=== PATIENT | female | born 1995 | race Caucasian/White ===

== ENCOUNTER 2019-08-19 00:43 | Emergency (ER) | payer BC ==
[2019-08-19 00:50] VITALS: RESP 18; TEMP 98.5
[2019-08-19 02:13] LABS: Basophils % (A) 0 %; Eosinophils # (A) 0.1 k/uL (0-0.7); Eosinophils % (A) 1 %; HCT 35.8 % (34.0-46.0); Lymphocytes # (A) 2.6 k/uL (1.0-4.8); Lymphocytes % (A) 22 %; MCH 30.9 pg (25.0-35.0); MCHC 33.6 g/dL (31.0-37.0); MCV 92.1 fL (80.0-100.0); Mean Platelet Volume 6.8; Monocytes # (A) 0.5 k/uL (0-1.0); Monocytes % (A) 5 %; Neutrophils # (A) 8.6 k/uL (1.3-7.7); Neutrophils % (A) 72 %; Platelet Count 224 k/uL (150-450); RBC 3.89 m/uL (3.80-5.40); RDW 12.4 % (11.5-15.5)
--- NOTE | 2019-08-19 02:18 | US ---
EXAMINATION TYPE: Transabdominal DATE OF EXAM: 08/19/2019 1:43 AM COMPARISON: NONE CLINICAL HISTORY: vag bleeding . Vaginal bleeding x 1.5 hours. Hx . . EXAM PERFORMED: Transabdominal (TA) EXAM MEASUREMENTS: GESTATIONAL AGE / DATING Physician Established: (13 weeks/6 days) EDC: 02/18/2020 Dates by LMP: Unknown Dates by First Scan: This is first scan Dates by Current Scan for: (13 weeks/4 days) EDC: 02/20/2020 MATERNAL ANATOMY Uterus: 11.2 x 9.4 x 10.1 cm. Right Ovary: 3.1 x 2.0 x 1.4 cm. Left Ovary: Not visualized. Post CDS / Adnexa: Appear wnl Presence of free fluid: None seen. Presence of corpus luteal cyst: Area of mixed echogenicity and peripheral vascularity seen within rig ht ovary: 1.2 x 1.4 x 1.1 cm. Presence of subchorionic bleed: Possible. Slightly hypoechoic indistinct area seen uterus left adjace nt to the GS toward the fundus: 3.2 x 2.2 x 2.2 cm. GESTATION / SURVEY CRL: 7.52 cm. (13 weeks/4 days) Yolk Sac (normal less than 6mm): not seen Heart Rate: 167 bpm Rhythm: Normal IUP: Viable IUP Nuchal Translucency 10-14wks (normal less than 3mm): not well seen Date of LMP: unknown Beta HcG (if available): not available IMPRESSION: The ultrasound gestational age is 13 weeks and 4 days. Possible 3.2 x 2.2 cm area of subchorionic hem orrhage near the uterine fundus.
[2019-08-19 02:22] LABS: ALT 11 U/L (4-34); AST 18 U/L (14-36); African American GFR (CKD) >90 (>60 ml/min/1.73 sqM); Albumin 3.7 g/dL (3.5-5.0); Alkaline Phosphatase 59 U/L (38-126); Anion Gap 7 mmol/L; Blood Urea Nitrogen 10 mg/dL (7-17); Calcium 9.5 mg/dL (8.4-10.2); Carbon Dioxide 21 mmol/L (22-30); Chloride 105 mmol/L (98-107); Glucose 95 mg/dL (74-99); Non-African American GFR(CKD) >90 (>60 ml/min/1.73 sqM); Potassium 4.2 mmol/L (3.5-5.1); Sodium 133 mmol/L (137-145); Total Bilirubin 0.2 mg/dL (0.2-1.3); Total Protein 6.4 g/dL (6.3-8.2)
[2019-08-19 03:00] LABS: Appearance,Urine Clear (Clear); Bilirubin,Urine Negative (Negative); Blood,Urine Negative (Negative); Color,Urine Yellow; Glucose,Urine (UA) Negative (Negative); Ketones,Urine Negative (Negative); Leukocyte Esterase,Urine Negative (Negative); Nitrite,Urine Negative (Negative); PH, Urine 5.5 (5.0-8.0); Protein,Urine Negative (Negative); Specific Gravity,Urine 1.024 (1.001-1.035); Urobilinogen,Urine <2.0 mg/dL (<2.0)
[2019-08-19 03:04] LABS: HCG,Quantitative Serum 16061.3 mIU/mL
--- NOTE | 2019-08-19 03:09 | ED ---
General Adult HPI - General Chief complaint: Vaginal Bleeding Stated complaint: 13 wks preg, vaginal bleeding Time Seen by Provider: 08/19/19 00:55 Source: patient, RN notes reviewed, old records reviewed Mode of arrival: ambulatory Limitations: no limitations - History of Present Illness Initial comments: 24-year-old female patient who is 13 weeks gestation parents ED for evaluation of vaginal spotting. For she's had some. Mild cramping last 2 days. Patient reports that she follows up with Dr. Marie and she is taking her vitamins. Denies any other complaints. Systemic: Pt denies fatigue, fever/chills, rash. Pt denies weakness, night sweats, weight loss. Neuro: Pt denies headache, visual disturbances, syncope or pre-syncope. HEENT: Pt denies ocular discharge or irritation, otalgia, rhinorrhea, pharyngitis or notable lymphadenopathy. Cardiopulmonary: Pt denies chest pain, SOB, heart palpitations, dyspnea on exertion. Abdominal/GI: Pt denies n/v/d. : Pt denies dysuria, burning w/ urination, frequency/urgency. Denies new onset urinary or bowel incontinence. MSK: Pt denies myalgia, loss of strength or function in extremities. Neuro: Pt denies new onset weakness, paresthesias. - Related Data Allergies Allergy/AdvReac Type Severity Reaction Status Date / Time naproxen AdvReac Unknown Verified 08/19/19 00:51 Review of Systems ROS Statement: Those systems with pertinent positive or pertinent negative responses have been documented in the HPI. ROS Other: All systems not noted in ROS Statement are negative. Past Medical History Additional Past Medical History / Comment(s): Herpes strand 1. History of Any Multi-Drug Resistant Organisms: None Reported Past Surgical History: Section, Orthopedic Surgery Additional Past Surgical History / Comment(s): L wrist. Past Psychological History: Anxiety Smoking Status: Never smoker Past Alcohol Use History: None Reported Past Drug Use History: None Reported General Exam - General Exam Comments Initial Comments: Constitutional: NAD, AOX3, Pt has pleasant affect. HEENT: NC/AT, trachea midline, neck supple, no lymphadenopathy. External ears appear normal, without discharge. Mucous membranes moist. Eyes PERRLA, EOM intact. There is no scleral icterus. No pallor noted. Cardiopulmonary: RRR, no murmurs, rubs or gallops, no JVD noted. Lungs CTAB in anterior and posterior garcia. No peripheral edema. Abdominal exam: Abdomen soft and non-distended. Abdomen non-tender to palpation in all 4 quadrants. Bowel sounds active in LLQ. No hepatosplenomegaly. No ecchymosis Neuro: CN II-XII grossly intact. No nuchal rigidity. No raccon eyes, no harris sign. MSK: Full active ROM in upper and lower extremities, 5/5 stregnth. Limitations: no limitations Course Vital Signs 08/19/19 00:46 Temperature 98.5 F Pulse Rate 107 H Respiratory 18 Rate Blood Pressure 142/88 O2 Sat by Pulse 99 Oximetry Medical Decision Making - Medical Decision Making 24 old female patient presented to ED for evaluation of some mild vaginal spotting which started earlier today. Patient vital signs are stable, afebrile. Physical exam did not display acute pathology. Abdomen soft and nontender. Laboratory investigations are non-impressive. Blood type is A+. Ultrasound display gestational age 13 weeks and 4 days. Possible 3 x 2 cm area of subchorionic hemorrhage. No other ectopic getting processes are noted. Patient was discharged to follow up with primary care provider will return to ER if condition worsens. Case discussed with Dr. Hobson. - Lab Data Result diagrams: 08/19/19 02:01 08/19/19 02:01 Lab Results 08/19/19 08/19/19 08/19/19 Range/Units 02:01 02:01 02:01 WBC 12.0 H (3.8-10.6) k/uL RBC 3.89 (3.80-5.40) m/uL Hgb 12.0 (11.4-16.0) gm/dL Hct 35.8 (34.0-46.0) % MCV 92.1 (80.0-100.0) fL MCH 30.9 (25.0-35.0) pg MCHC 33.6 (31.0-37.0) g/dL RDW 12.4 (11.5-15.5) % Plt Count 224 (150-450) k/uL Neutrophils % 72 % Lymphocytes % 22 % Monocytes % 5 % Eosinophils % 1 % Basophils % 0 % Neutrophils # 8.6 H (1.3-7.7) k/uL Lymphocytes # 2.6 (1.0-4.8) k/uL Monocytes # 0.5 (0-1.0) k/uL Eosinophils # 0.1 (0-0.7) k/uL Basophils # 0.0 (0-0.2) k/uL Sodium 133 L (137-145) mmol/L Potassium 4.2 (3.5-5.1) mmol/L Chloride 105 (98-107) mmol/L Carbon Dioxide 21 L (22-30) mmol/L Anion Gap 7 mmol/L BUN 10 (7-17) mg/dL Creatinine 0.52 (0.52-1.04) mg/dL Est GFR (CKD-EPI)AfAm >90 (>60 ml/min/1.73 sqM) Est GFR (CKD-EPI)NonAf >90 (>60 ml/min/1.73 sqM) Glucose 95 (74-99) mg/dL Calcium 9.5 (8.4-10.2) mg/dL Total Bilirubin 0.2 (0.2-1.3) mg/dL AST 18 (14-36) U/L ALT 11 (4-34) U/L Alkaline Phosphatase 59 (38-126) U/L Total Protein 6.4 (6.3-8.2) g/dL Albumin 3.7 (3.5-5.0) g/dL HCG, Quant 76426.3 mIU/mL Urine Color Urine Appearance (Clear) Urine pH (5.0-8.0) Ur Specific Aurora (1.001-1.035) Urine Protein (Negative) Urine Glucose (UA) (Negative) Urine Ketones (Negative) Urine Blood (Negative) Urine Nitrite (Negative) Urine Bilirubin (Negative) Urine Urobilinogen (<2.0) mg/dL Ur Leukocyte Esterase (Negative) Blood Type A Positive Blood Type Recheck No Previous Record Bld Type Recheck Status [facility] ONLY 08/19/19 Range/Units 02:40 WBC (3.8-10.6) k/uL RBC (3.80-5.40) m/uL Hgb (11.4-16.0) gm/dL Hct (34.0-46.0) % MCV (80.0-100.0) fL MCH (25.0-35.0) pg MCHC (31.0-37.0) g/dL RDW (11.5-15.5) % Plt Count (150-450) k/uL Neutrophils % % Lymphocytes % % Monocytes % % Eosinophils % % Basophils % % Neutrophils # (1.3-7.7) k/uL Lymphocytes # (1.0-4.8) k/uL Monocytes # (0-1.0) k/uL Eosinophils # (0-0.7) k/uL Basophils # (0-0.2) k/uL Sodium (137-145) mmol/L Potassium (3.5-5.1) mmol/L Chloride (98-107) mmol/L Carbon Dioxide (22-30) mmol/L Anion Gap mmol/L BUN (7-17) mg/dL Creatinine (0.52-1.04) mg/dL Est GFR (CKD-EPI)AfAm (>60 ml/min/1.73 sqM) Est GFR (CKD-EPI)NonAf (>60 ml/min/1.73 sqM) Glucose (74-99) mg/dL Calcium (8.4-10.2) mg/dL Total Bilirubin (0.2-1.3) mg/dL AST (14-36) U/L ALT (4-34) U/L Alkaline Phosphatase (38-126) U/L Total Protein (6.3-8.2) g/dL Albumin (3.5-5.0) g/dL HCG, Quant mIU/mL Urine Color Yellow Urine Appearance Clear (Clear) Urine pH 5.5 (5.0-8.0) Ur Specific Aurora 1.024 (1.001-1.035) Urine Protein Negative (Negative) Urine Glucose (UA) Negative (Negative) Urine Ketones Negative (Negative) Urine Blood Negative (Negative) Urine Nitrite Negative (Negative) Urine Bilirubin Negative (Negative) Urine Urobilinogen <2.0 (<2.0) mg/dL Ur Leukocyte Esterase Negative (Negative) Blood Type Blood Type Recheck Bld Type Recheck Status Disposition Clinical Impression: Vaginal bleeding during Disposition: HOME SELF-CARE Condition: Stable Instructions (If sedation given, give patient instructions): Non-Threatening First Trimester Vaginal Bleed (ED) Additional Instructions: Follow-up with primary care provider and FACILITIES SUPERVISOR tomorrow. Return to ER if condition worsens in any way. Is patient prescribed a controlled substance at d/c from ED?: No Referrals: Luisa Olmstead MD [Primary Care Provider] - 1-2 days
[2019-08-19 03:24] VITALS: BP 124/71; PULSE 90
== END 2019-08-19 03:25 | disposition home or self-care (01) ==
LOC: EC 00:43
DX: O46.91 Antepartum hemorrhage, unspecified, first trimester (principal); Z88.6 Allergy status to analgesic agent; Z3A.13 13 weeks gestation of pregnancy
CPT/HCPCS: 36415; 76801; 80053; 81003; 84702; 85025; 86900; 86901; 99284

== ENCOUNTER 2020-02-06 22:40 | Outpatient (CLI) | payer BC ==
[2020-02-07 00:10] LABS: Basophils % (A) 0 %; Eosinophils # (A) 0.1 k/uL (0-0.7); Eosinophils % (A) 1 %; HCT 36.6 % (34.0-46.0); HGB 12.2 gm/dL (11.4-16.0); Lymphocytes # (A) 2.1 k/uL (1.0-4.8); Lymphocytes % (A) 16 %; MCHC 33.3 g/dL (31.0-37.0); MCV 89.9 fL (80.0-100.0); Mean Platelet Volume 7.1; Monocytes # (A) 0.6 k/uL (0-1.0); Monocytes % (A) 5 %; Neutrophils # (A) 9.8 k/uL (1.3-7.7); Neutrophils % (A) 76 %; Platelet Count 295 k/uL (150-450); RBC 4.07 m/uL (3.80-5.40); RDW 14.5 % (11.5-15.5); WBC 12.9 k/uL (3.8-10.6)
[2020-02-07 00:26] LABS: Uric Acid 4.4 mg/dL (3.7-7.4)
[2020-02-07 00:47] VITALS: BP 154/86; PULSE 106; RESP 18; TEMP 98.4
--- NOTE | 2020-03-18 08:04 | P.MSEPDOC ---
Presenting Problems - Arrival Data Date of Arrival on Unit: 02/06/20 Time of Arrival on Unit: 22:40 Mode of Transport: Ambulatory - Complaint OB-Reason for Admission/Chief Complaint: Possible Onset of Labor Comment: pt. present to triage due to contractions starting around 6:00pm around every 30min per patient. Medical History - Information : 2 Para: 1 Term: 1 : 0 Abortions: Spontaneous or Elective: 0 Number of Living Children: 1 - Gestational Age Gestational Age by ABHAY (wks/days): 38 Weeks and 3 Days - History Complications: Prior Review of Systems - Review of Systems Constitutional: No problems Breast: No problems ENT: No problems Cardiovascular: No problems Respiratory: No problems Gastrointestinal: No problems Genitourinary: No problems Musculoskeletal: No problems Neurological: No problems Skin: No problems Vital Signs - Temperature Temperature: 98.4 F Temperature Source: Oral - Pulse Pulse Oximetery Pulse Rate: 106 Pulse Assessment Method: Pulse Oximetry - Respirations Respiratory Rate: 18 Oxygen Delivery Method: Room Air O2 Sat by Pulse Oximetry: 98 - Blood Pressure Right Arm Blood Pressure: 154/86 Blood Pressure Mean: 108 Blood Pressure Source: Automatic Cuff Medical Screen Scoring (Pre) - Cervical Exam Dilation: 0 cm = 0 Membranes: Intact - Uterine Contractions Frequency: > 5 minutes apart = 1 Duration: N/A Intensity: N/A - Maternal Vital Signs Maternal Temperature: N/A Maternal Blood Pressure: Systolic >139 = 2 Signs of Preeclampsia: N/A Maternal Respirations: N/A - Maternal Trauma Maternal Trauma: N/A - Assessment - Baby A Baseline FHR: 135 Heart Rate - NICHD Category: Category I (Normal) = 0 NST: Reactive Position: N/A Station: N/A - Total Score - Baby A Total Score - Baby A: 3 - Total Score - Baby B Total Score - Baby B: 3 - Total Score - Baby C Total Score - Baby C: 3 - Level of Risk - Baby A Level of Risk - Baby A: Low (0-5) - Level of Risk - Baby B Level of Risk - Baby B: Low (0-5) - Level of Risk - Baby C Level of Risk - Baby C: Low (0-5) Physician Notification (Pre) - Physician Notified Physician Notified Date: 02/07/20 Physician Notified Time: 23:29 New Order Received: Yes - Notification Comment Comment: orders for AST, ALT, CBC and uric acid, and to continue monitoring vitals, Labs reviewed with Dr. Denis, BP trending down last set of BP 134/76. Orders to discharge patient home with pelvic rest, and to follow up with Dr. Lambert, pt. samir for 02/11/20 Disposition - Disposition OB Disposition: Physician follow up in office, Discharge to home Discharge Date: 02/07/20 Discharge Time: 00:35 I agree with the RN Medical Screening Exam: Yes Case reviewed; plan agreed upon as documented in EMR&OBIX.: Yes Comments: Patient was neither seen nor examined by me. Diagnosis: FALSE LABOR AT OR AFTER 37 COMPLETED WEEKS OF GESTATION
== END 2020-02-07 00:35 | disposition home or self-care (01) ==
LOC: FBPOP 22:40
PROVIDERS: ATTEND Obstetrics & Gynecology
DX: O47.1 False labor at or after 37 completed weeks of gestation (principal); Z3A.38 38 weeks gestation of pregnancy
CPT/HCPCS: 59025; 84450; 84460; 84550; 85025; 99213

== ENCOUNTER 2020-02-11 06:00 | Inpatient (IN) | payer BC ==
[2020-02-10 14:42] VITALS: BMI 40.1
[2020-02-11] MEDS ORDERED: ceFAZolin 3 GM in SODIUM CHLORIDE 0.9% 100 ML IVPB ONE (10:37)
[2020-02-11] MEDS ORDERED: CITRIC ACID-SODIUM CITRATE 15 ML CUP PO ONE (10:37)
[2020-02-11] MEDS: LACTATED RINGERS 1,000 ML IV ONE ×2 (10:52→11:59)
[2020-02-11 11:00] LABS: Basophils % (A) 0 %; Eosinophils # (A) 0.2 k/uL (0-0.7); Eosinophils % (A) 2 %; HCT 39.6 % (34.0-46.0); HGB 12.7 gm/dL (11.4-16.0); Lymphocytes # (A) 2.1 k/uL (1.0-4.8); Lymphocytes % (A) 16 %; MCH 28.7 pg (25.0-35.0); MCHC 32.1 g/dL (31.0-37.0); MCV 89.5 fL (80.0-100.0); Monocytes # (A) 0.5 k/uL (0-1.0); Monocytes % (A) 4 %; Neutrophils # (A) 9.7 k/uL (1.3-7.7); Neutrophils % (A) 77 %; Platelet Count 320 k/uL (150-450); RBC 4.43 m/uL (3.80-5.40); RDW 14.9 % (11.5-15.5); WBC 12.6 k/uL (3.8-10.6)
--- NOTE | 2020-02-11 12:00 | P.HPOB ---
History of Present Illness H&P Date: 02/11/20 Chief Complaint: P at 39 and 0, history of 1 desires repeat This is a 24-year-old 001 at 39-2/7 weeks an estimated due date of 02/17. Patient has been receiving routine care with myself. Patient is a history of a primary secondary to arrest of descent and dilation. Patient states she was induced for multiple days eventually necessitating C- section for delivery. This morning patient notes good movement she denies contractions vaginal bleeding or loss of fluid. On bloodwork this patient has a blood type of A+, rubella status immune, hepatitis B surface antigen negative, HIV negative, RPR nonreactive, group beta strep is negative. Review of Systems Constitutional: Denies chills, Denies fatigue, Denies fever Ears, nose, mouth and throat: Denies headache Cardiovascular: Reports leg edema Respiratory: Denies dyspnea Gastrointestinal: Denies constipation, Denies diarrhea, Denies nausea, Denies vomiting Genitourinary: Reports Past Medical History Past Medical History: GERD/Reflux Additional Past Medical History / Comment(s): Herpes strand 1. , hx migraines, "ventricular double beat"-pulse is always high, acid reflux as child, anemia History of Any Multi-Drug Resistant Organisms: None Reported Past Surgical History: Section, Orthopedic Surgery Additional Past Surgical History / Comment(s): left wrist surgery x 3(plate/later removed), Past Anesthesia/Blood Transfusion Reactions: No Reported Reaction Past Psychological History: Anxiety Smoking Status: Never smoker Past Alcohol Use History: None Reported Past Drug Use History: None Reported - Past Family History Mother Family Medical History: Hypertension Medications and Allergies Home Medications Medication Instructions Recorded Confirmed Type Pnv,Calcium 72/Iron/Folic Acid 1 tab PO DAILY 12/10/19 02/11/20 History [ Plus Tablet] valACYclovir [Valtrex] 1 gm PO DAILY 02/06/20 02/11/20 History Allergies Allergy/AdvReac Type Severity Reaction Status Date / Time naproxen AdvReac blood Verified 02/11/20 10:35 pressure dropped Exam Osteopathic Statement: *. No significant issues noted on an osteopathic structural exam other than those noted in the History and Physical/Consult. Vital Signs Temp Pulse Resp BP Pulse Ox 02/11/20 10:42 96.7 F L 104 H 18 136/84 98 Intake and Output 02/10/20 02/11/20 02/11/20 22:59 06:59 14:59 Other: Weight 127.006 kg Targeted physical exam is performed on this date and warehouse receiving clerk a well-nourished well-developed female in no acute distress, breathing is noted to be nonlabored, heart has regular rate and rhythm, abdomen is gravid and appropriate for gestational age, trace lower cavity edema is noted. heart tones returned be category 1 and she is not otoniel. Cervical exam is deferred. Results Result Diagrams: 02/11/20 10:45 Abnormal Lab Results - Last 24 Hours (Table) 02/11/20 Range/Units 10:45 WBC 12.6 H (3.8-10.6) k/uL Neutrophils # 9.7 H (1.3-7.7) k/uL Assessment and Plan (1) Term Current Visit: Yes Status: Acute Code(s): Z34.90 - ENCNTR FOR SUPRVSN OF NORMAL , UNSP, UNSP TRIMESTER SNOMED Code(s): 62962020 (2) H/O section Current Visit: Yes Status: Acute Code(s): Z98.891 - HISTORY OF UTERINE SCAR FROM PREVIOUS SURGERY SNOMED Code(s): 510332450 Plan: This 24-year-old 2 para 1001 at 39-0/7 weeks is admitted to labor and delivery for scheduled repeat section. Surgery is reviewed and all questions are answered. Anesthesia and to see patient, will proceed with repeat section.
[2020-02-11] MEDS ORDERED: PHENYLEPHRINE 10 MG/ML VIAL ONE (12:07)
[2020-02-11] MEDS ORDERED: ONDANSETRON 4 MG/2 ML VIAL ONE (12:07)
[2020-02-11] MEDS ORDERED: MORPHINE SULFATE (PF) 0.3 MG/0.3 ML SYR ONE (12:07)
[2020-02-11] MEDS ORDERED: OXYTOCIN 10 UNIT/ML 1 ML VIAL ONE (12:07)
[2020-02-11] MEDS ORDERED: NALOXONE 0.4 MG/ML 1 ML VIAL IV PRN (13:00)
[2020-02-11] MEDS ORDERED: ACETAMINOPHEN IV (For NPO) 1,000 MG in EMPTY BAG 1 BAG IVPB ONE (13:00)
[2020-02-11] MEDS ORDERED: diphenhydrAMINE 25 MG CAP PO PRN (13:00)
[2020-02-11] MEDS ORDERED: diphenhydrAMINE 50 MG CAP PO PRN (13:00)
[2020-02-11] MEDS ORDERED: ONDANSETRON 4 MG/2 ML VIAL IVP PRN (13:00)
[2020-02-11] MEDS ORDERED: diphenhydrAMINE 50 MG/ML 1 ML VIAL IVP PRN ×2 (13:00)
[2020-02-11] MEDS ORDERED: ACETAMINOPHEN TAB 325 MG TAB PO PRN (13:00)
[2020-02-11] MEDS ORDERED: SIMETHICONE 80 MG CHEWABLE PO PRN (13:00)
[2020-02-11] MEDS ORDERED: METOCLOPRAMIDE 5 MG/ML 2 ML VIAL IVP PRN (13:00)
[2020-02-11] MEDS ORDERED: ZOLPIDEM 5 MG TAB PO PRN (13:00)
[2020-02-11] MEDS ORDERED: OXYTOCIN 30 UNITS/500 ML NS 30 UNIT in SALINE 1 500ML.BAG IV SCH (13:00)
--- NOTE | 2020-02-11 13:06 | P.OP ---
Date of Procedure: 02/11/20 Preoperative Diagnosis: IUP at 39 and 0, history of 1, desires repeat Postoperative Diagnosis: Same Procedure(s) Performed: Repeat section Anesthesia: spinal Surgeon: Nazanin Lambert Pharmacy District Manager #1: Kris Borges Estimated Blood Loss (ml): 450 IV fluids (ml): 600 Urine output (ml): 100 Pathology: none sent Condition: stable Disposition: observation Indications for Procedure: This 24-year-old 2 para 1001 at 39 0/7 weeks presents to labor and delivery for scheduled repeat section. Patient has a prior history of a after a failed induction of multiple days. Operative Findings: Arcuate uterus is noted, normal tubes and ovaries are appreciated. Some omental scarring is noted anteriorly. Description of Procedure: Patient is taken back to the operating suite where spinal anesthesia was found to be adequate by the anesthesia department. She is then prepped and draped in normal sterile fashion in the dorsal supine position. A Pfannenstiel skin incision was made with the scalpel and carried through the underlying layer of fascia. The fascia was incised in the midline and extended laterally. The aguilera perior aspect of the fascial incision was then grasped with Bethel clamps, elevated and the underlying rectus muscles dissected off sharply. A rectal separation is noted with omental adhesions to the anterior abdominal wall. The inferior aspect of the fascial incision was then grasped with Bethel clamps, elevated and underlying rectus muscles dissected off sharply once again. The rectus muscles were in the midline and the bladder blade was then inserted. A hysterotomy incision was made with the scalpel clear amniotic fluid is noted. The infant is noted to be in a vertex presentation and delivered in the usual fashion. The umbo cord was doubly clamped and cut and the infant was handed off to awaiting RN. The placenta was then delivered manually and the uterus was cleared of all clots and debris. The uterus is then delivered from the abdomen. The uterine incision is closed 0 Vicryl in a running locked fashion from one lateral edge the other. It imbricating suture is also completed from one lateral edge the other neurologic. Hemostasis was appreciated. The pelvis then copiously irrigated and the uterus was returned to the abdomen. On inspection of the patient's hysterotomy incision hemostasis was appreciated. The fascia was then closed with 0 Vicryl in a running fashion from one lateral edge the midline and the other lateral edge the midline. The subcutaneous tissue was then irrigated and found hemostatic. The subcu tissues then closed with 3-0 Vicryl in a running fashion. Skin was then closed with 4-0 Vicryl in a subcuticular fashion. All counts were noted to be correct 2. Patient and tolerated delivery well and are resting comfortably.
[2020-02-11] MEDS: SENNOSIDES-DOCUSATE SODIUM 1 EACH TAB PO SCH (21:10)
--- NOTE | 2020-02-12 07:50 | P.PN ---
Progress Note - Text Progress Note Date: 02/12/20 Postoperative day 1 status post section under spinal anesthesia and in trathecal Duramorph for postoperative analgesia.The patient is doing well, there is mild generalized skin itching. There are no other anesthesia related complications. The patient denies any paresthesia or weakness in the lower extremities. Further management as per the patient primary team.
[2020-02-12 08:04] LABS: Basophils % (A) 0 %; Eosinophils # (A) 0.1 k/uL (0-0.7); Eosinophils % (A) 1 %; HCT 32.5 % (34.0-46.0); HGB 10.9 gm/dL (11.4-16.0); Lymphocytes # (A) 1.9 k/uL (1.0-4.8); Lymphocytes % (A) 21 %; MCH 30.5 pg (25.0-35.0); MCHC 33.5 g/dL (31.0-37.0); MCV 91.1 fL (80.0-100.0); Monocytes # (A) 0.6 k/uL (0-1.0); Monocytes % (A) 6 %; Neutrophils # (A) 6.4 k/uL (1.3-7.7); Neutrophils % (A) 70 %; Platelet Count 212 k/uL (150-450); RBC 3.57 m/uL (3.80-5.40); RDW 14.7 % (11.5-15.5)
--- NOTE | 2020-02-12 08:35 | P.PNOBGPC ---
Subjective - Subjective Principal diagnosis: POD 1 RCS Interval history: Patient did well overnight. She is ambulating and voiding without difficulty. She is tolerating a clear liquid diet without nausea or vomiting. She states her pain is well-controlled. She denies concerns this morning. Patient reports: Reports appetite normal, Reports voiding normally, Reports pain well controlled, Reports ambulating normally : doing well Objective - Vital Signs Latest vital signs: Vital Signs Temp Pulse Resp BP Pulse Ox 02/12/20 04:00 97.9 F 79 17 110/62 97 02/12/20 00:00 75 17 104/70 98 02/11/20 20:00 97.6 F 79 16 116/74 98 02/11/20 15:08 97.1 F L 74 16 119/69 99 02/11/20 14:38 80 16 122/67 100 02/11/20 14:08 73 16 118/56 97 02/11/20 13:53 74 18 114/55 99 02/11/20 13:38 73 18 120/67 99 02/11/20 13:23 96 16 115/66 100 02/11/20 13:08 96.8 F L 90 18 115/60 99 02/11/20 10:42 96.7 F L 104 H 18 136/84 98 Intake and Output 02/11/20 02/12/20 02/12/20 22:59 06:59 14:59 Output Total 400 Balance -400 Output: Urine 400 Uretheral (Merino) 400 Other: # Voids 1 - Exam Extremities: Present: normal, edema Abdomen: Present: normal appearance Incision: Present: normal, dry Uterus: Present: normal, firm - Labs Labs: Abnormal Lab Results - Last 24 Hours (Table) 02/11/20 02/12/20 Range/Units 10:45 07:19 WBC 12.6 H (3.8-10.6) k/uL RBC 3.57 L (3.80-5.40) m/uL Hgb 10.9 L (11.4-16.0) gm/dL Hct 32.5 L (34.0-46.0) % Neutrophils # 9.7 H (1.3-7.7) k/uL Assessment and Plan (1) Term Current Visit: Yes Status: Acute Code(s): Z34.90 - ENCNTR FOR SUPRVSN OF NORMAL , UNSP, UNSP TRIMESTER SNOMED Code(s): 58405302 (2) H/O section Current Visit: Yes Status: Acute Code(s): Z98.891 - HISTORY OF UTERINE SCAR FROM PREVIOUS SURGERY SNOMED Code(s): 485608143 (3) S/P section Current Visit: Yes Status: Acute Code(s): Z98.891 - HISTORY OF UTERINE SCAR FROM PREVIOUS SURGERY SNOMED Code(s): 430731973 Plan: This 24-year-old G1 2 now P2 status post repeat section is doing well. She is without complaints this morning. We'll plan to continue routine postoperative care and anticipate discharge home tomorrow morning.
[2020-02-12] MEDS: HYDROcodone/APAP 5-325MG 1 EACH TAB PO PRN ×2 (09:04→18:20)
[2020-02-12] MEDS: SENNOSIDES-DOCUSATE SODIUM 1 EACH TAB PO SCH ×2 (09:04→22:10)
[2020-02-12] MEDS: IBUPROFEN 600 MG TAB PO PRN ×2 (12:17→22:11)
[2020-02-12] MEDS: LACTATED RINGERS 1,000 ML IV SCH ×2 (22:09→22:10)
[2020-02-12 23:51] VITALS: TEMP 97.6
[2020-02-13] MEDS: LACTATED RINGERS 1,000 ML IV SCH (05:20)
--- NOTE | 2020-02-13 08:20 | P.DS ---
Providers Date of admission: 02/11/20 10:13 Expected date of discharge: 02/13/20 Attending physician: Nazanin Lambert Primary care physician: Stated None - Discharge Diagnosis(es) (1) Term Current Visit: Yes Status: Acute (2) H/O section Current Visit: Yes Status: Acute (3) S/P section Current Visit: Yes Status: Acute Hospital Course: This is a 24-year-old 001 that presented to labor and delivery at 39 0/7 weeks for scheduled repeat section. Patient had a prior history of C- section after a failed induction, multiple days. Patient was admitted to labor and delivery for scheduled . was completed without difficulty for further details on the please see the operative report. Of note patient had been receiving routine care that had been essentially uncomplicated. Patient's postoperative course has been uneventful. On this postoperative day #2 she is noting a mild bit of nausea, but overall is feeling well. She is ambulating and voiding without difficulty. Her lochia is moderate, she is breast-feeding without difficulty. Plan - Discharge Summary Discharge Rx Participant: Yes New Discharge Prescriptions: No Action Pnv,Calcium 72/Iron/Folic Acid [ Plus Tablet] 1 tab PO DAILY valACYclovir [Valtrex] 1 gm PO DAILY Discharge Medication List Pnv,Calcium 72/Iron/Folic Acid [ Plus Tablet] 1 tab PO DAILY 12/10/19 [History] valACYclovir [Valtrex] 1 gm PO DAILY 02/06/20 [History] Follow up Appointment(s)/Referral(s): Nazanin Lambert DO [Doctor of Osteopathic Medicine] - 2 Weeks Patient Instructions/Handouts: (DC), (GEN) Activity/Diet/Wound Care/Special Instructions: Patient can expect menstrual-like bleeding for 4-6 weeks after delivery, Steri- Strips should fall off around 7-10 days. Should the suture strips not falloff I will remove at her two-week post operative appointment. [id number] ibuprofen as needed for discomfort. Discharge Disposition: HOME SELF-CARE
[2020-02-13 08:45] VITALS: BP 126/71; PULSE 91; RESP 16
[2020-02-13] MEDS: IBUPROFEN 600 MG TAB PO PRN (09:57)
== END 2020-02-13 16:08 | disposition home or self-care (01) | DRG 787 ==
LOC: 4FBP 10:13
PROVIDERS: ADMIT Obstetrics & Gynecology Obstetrics; ATTEND Obstetrics & Gynecology Obstetrics
PROC: 10D00Z1 Extraction of Products of Conception, Low, Open Approach (ICD-10-PCS; principal; 2020-02-11 12:17)
DX: O34.211 Maternal care for low transverse scar from previous cesarean delivery (principal); B00.89 Other herpesviral infection; O99.344 Other mental disorders complicating childbirth; F41.9 Anxiety disorder, unspecified; Q51.810 Arcuate uterus; Z37.0 Single live birth; Z3A.39 39 weeks gestation of pregnancy; Z82.49 Family history of ischemic heart disease and other diseases of the circulatory system; Z88.6 Allergy status to analgesic agent; Z79.899 Other long term (current) drug therapy
CPT/HCPCS: 85025; 86850; 86900; 86901